=== PATIENT | female | born 1940 | race Caucasian/White ===

== ENCOUNTER → 2016-11-03 12:36 | Outpatient (CLI) | payer MEDICARE, OTHER ==
[2015-01-16 01:20] VITALS: BMI 24.4
[~2016-11-03 12:36] MED LIST: ASCORBIC ACID500 MG PO; BAYER CHEWABLE81 MG PO; BISOPROLOL-HCT1 EAC1 PO; CALCIUM 600+D T1 TA1 PO; CATAPRES0.1 MG PO; CO Q-10200 MG PO; FAMOTIDINE10 MG PO; LISINOPRIL10 MG PO; MICRO-K10 MEQ PO; MULTIPLE VITAMI1 TA1 PO; SYNTHROID100 MCG PO; ZOCOR20 MG PO
== END | disposition home or self-care (01) ==
LOC: D.MAMMO 12:36
DX: Z12.31 Encounter for screening mammogram for malignant neoplasm of breast (principal)

== ENCOUNTER → 2017-03-15 13:20 | Outpatient (CLI) | payer MEDICARE, OTHER ==
[2015-01-16 01:20] VITALS: BMI 24.4
== END | disposition home or self-care (01) ==
LOC: D.US 13:20
DX: I65.23 Occlusion and stenosis of bilateral carotid arteries (principal)

== ENCOUNTER → 2017-05-03 17:18 | Emergency (ER) | payer MEDICARE, OTHER ==
[2015-01-16 01:20] VITALS: BMI 24.4
[~2017-05-03 17:18] MED LIST changes: +BIOTIN5 MG PO; +CETIRIZINE HCL5 MG PO; +LASIX20 MG PO; +NORVASC5 MG PO; +POTASSIUM CHLO10 ME1 PO; +PROBIOTIC1 EAC1 PO; +VITAMIN B-121000 MCG PO; +VITAMIN B650 MG PO; +VITAMIN D31000 UNI2 PO
[2017-05-03 18:40] LABS: BASOPHILS 0.3 % (0-2); EOSINOPHILS 1.8 % (0-7); HEMATOCRIT 39.8 % (36.0-48.0); HEMOGLOBIN 13.4 g/dL (12-16); IMMATURE GRANULOCYTES 0.3 % (0-5); LYMPHOCYTES 16.3 % (15-50); MCH 30.9 pg (26.0-34.0); MCHC 33.7 g/dL (31.0-37.0); MCV 91.7 fL (80.0-100.0); MEAN PLATELET VOLUME 9.6 fL (7.4-10.4); MONOCYTES 7.1 % (2-11); NEUTROPHILS 74.2 % (40-80); PLATELET COUNT 221 10x3/uL (130-400); RBC 4.34 10x6/uL (4.00-5.40); RDW 12.6 % (11.5-14.5); WBC 11.6 10x3/uL (4.8-10.8)
[2017-05-03 18:50] LABS: ALBUMIN 3.8 g/dL (3.4-5.0); ANION GAP 14.4 mmol/L (8-16); BILIRUBIN - TOTAL 0.7 mg/dL (0.2-1.3); CALCIUM 9.9 mg/dL (8.5-10.1); CREATININE - SERUM 1.1 mg/dL (0.6-1.3); POTASSIUM - SERUM 3.4 mmol/L (3.5-5.1); PROTEIN - SERUM 7.9 g/dL (6.4-8.2)
[2017-05-03 19:33] LABS: PRO BNP 332 pg/mL (0-125)
[2017-05-03 19:33] LABS: APPEARANCE CLEAR (CLEAR); BILIRUBIN NEGATIVE (NEGATIVE); COLOR DK YELLOW (YELLOW); GLUCOSE NEGATIVE (NEGATIVE); KETONE NEGATIVE (NEGATIVE); NITRITE NEGATIVE (NEGATIVE); PROTEIN NEGATIVE (NEGATIVE); UROBILINOGEN NORMAL (NORMAL)
[2017-05-03 19:34] LABS: BACTERIA FEW /hpf (NONE SEEN); EPITHELIAL CELLS 0-5 /hpf (0-5); RED CELLS - URINE 0-5 /hpf (0-5); WHITE CELLS - URINE 0-5 /hpf (0-5)
[2017-05-03 19:36] LABS: CALCIUM OXALATE CRYSTALS RARE /hpf (NONE SEEN)
[2017-05-03 19:45] LABS: TROPONIN-I < 0.017 ng/mL (0.000-0.060)
== END ==
LOC: D.ER 17:18
PROVIDERS: Family Medicine
DX: K81.0 Acute cholecystitis (principal)

== ENCOUNTER 2017-07-06 06:30 | Day surgery (SDC) | payer MEDICARE, OTHER ==
[2017-07-05 12:28] LABS: CALC OSMOLALITY 278 mosm/kg (275-300); CALCIUM 9.1 mg/dL (8.5-10.1); CARBON DIOXIDE 29.7 mmol/L (21.0-32.0); CHLORIDE - SERUM 102 mmol/L (98-107); CREATININE - SERUM 0.7 mg/dL (0.6-1.3); GLUCOSE 93 mg/dL (74-106); SODIUM 141 mmol/L (136-145); UREA NITROGEN 8 mg/dL (7-18); eGFR NON AFRICAN AMERICAN 87 mL/min (90-120)
[2017-07-05 12:39] LABS: HEMATOCRIT 38.7 % (36.0-48.0); HEMOGLOBIN 12.9 g/dL (12-16); MCH 30.1 pg (26.0-34.0); MCHC 33.3 g/dL (31.0-37.0); MCV 90.2 fL (80.0-100.0); MEAN PLATELET VOLUME 9.9 fL (7.4-10.4); RBC 4.29 10x6/uL (4.00-5.40); RDW 13.4 % (11.5-14.5); WBC 7.9 10x3/uL (4.8-10.8)
[~2017-07-06] VITALS: Ht 162.6 cm; Wt 59.4 kg
--- NOTE | ~2017-07-06 | OP ---
PATIENT NAME: GREY ZURITA MEDICAL RECORD: [id number] :44 LOCATION:D.[facility] ADMISSION DATE: SURGEON: KELBY DUARTE MD DATE OF OPERATION: 07/06/2017 PREOPERATIVE DIAGNOSIS: Symptomatic gallstones. POSTOPERATIVE DIAGNOSES: Symptomatic gallstones with hepatomegaly. PROCEDURE: 1. Laparoscopic cholecystectomy. 2. Intraoperative cholangiography without immediate surgeon interpretation. 3. An 18-gauge core needle liver biopsies. SURGEON: Kelby Duarte MD. PCI SECURITY CONSULTANT: None. BLOOD LOSS: Minimal. ANESTHESIA: General. COMPLICATIONS: None. The risks, possible complications, and alternatives to the procedure were explained to the patient. She elected to proceed. OPERATIVE COURSE: The patient was conveyed to the operating room electively on 07/06/2017. General anesthesia was induced by the anesthesia staff. The abdomen was sterilely prepped and draped. A small skin reyna was accomplished in the left upper quadrant. A Veress needle was inserted through the skin reyna into the peritoneal cavity. CO2 insufflation was begun. Once a sufficient pneumoperitoneum had been achieved, a 5-mm trocar was inserted through an incision in the right upper quadrant. Under direct internal vision utilizing a television camera, a 12-mm trocar was inserted through an incision at the umbilicus. Two more trocars were inserted. A 5-mm trocar was inserted in the epigastrium. Another 5-mm trocar was inserted far laterally in the right upper quadrant. During insertion of the Veress needle and all trocars, there appeared to have been no injury to the bowels, any intraperitoneal or retroperitoneal structures. The indication for the liver biopsy was hepatomegaly. Under laparoscopic guidance, I percutaneously accessed the right upper quadrant utilizing an 18-gauge core needle liver biopsy device. Cores were obtained over the convexity of the liver. The biopsy sites were made hemostatic with electrocautery. I then advanced the cholangiogram trocar. I punctured the fundus of the gallbladder. I aspirated bile. I then injected dye. Static fluoroscopic images were obtained. These cholangiographic images are sent to the radiologist for interpretation. I withdrew the cholangiogram trocar. The gallbladder was grasped and retracted cephalad. The infundibulum was grasped and retracted laterally. Critical view of the triangle of Calot was visualized. Blunt dissection was begun on the triangle of Calot. One cystic artery and one cystic duct were identified. These were clipped multiply and divided between clips. OPERATIVE REPORT [id number] GREY ZURITA The gallbladder was then excised from its bed and the liver. It was placed within an Endobag retrieval device and was withdrawn through the umbilical fascia defect. The 12-mm trocars were placed and the abdomen reinsufflated. I irrigated and aspirated in the right upper quadrant. There was no bleeding even at low pressure of 8. The Nick-Jose suture closure device and 0 Vicryl sutures were used to close the umbilical fascia. All the trocars were removed and the abdomen desufflated. The incision at the umbilicus was closed with interrupted 4-0 Vicryl Rapide sutures. The other skin incisions were closed with interrupted intracuticular 3-0 Vicryls. Benzoin and Steri-Strips were applied. The patient was then extubated and conveyed to post-anesthesia care unit where she was in stable condition. TRANSINT:[id number] Voice Confirmation ID: [id number] DOCUMENT ID: [id number] KELBY DUARTE MD at 1227 CC: MATTHEW BRIDGES and CALLI NEGRO MD [id number] DICTATION DATE: 07/06/17 1048 AUTO ADJUDICATION SPECIALIST: 07/06/17 1412 [facility] 07/06/[address] [address]
[2017-07-06 07:16] VITALS: BP 118/62; Ht 162.6 cm; Wt 59.4 kg
== END 2017-07-06 14:20 | disposition home or self-care (01) ==
LOC: D.OPS 06:30 → D.PAN 08:45 → D.OPS 08:45 → D.PAN 09:30 → D.OPS 09:30
PROVIDERS: Anesthesiology
DX: K80.10 Calculus of gallbladder with chronic cholecystitis without obstruction (principal); K76.0 Fatty (change of) liver, not elsewhere classified; Z01.812 Encounter for preprocedural laboratory examination

== ENCOUNTER 2018-02-01 08:00 | Outpatient (CLI) | payer MEDICARE, OTHER ==
[2017-07-06 07:16] VITALS: BMI 22.5
== END 2018-02-01 09:00 | disposition home or self-care (01) ==
LOC: D.MAMMO 08:00
DX: Z12.31 Encounter for screening mammogram for malignant neoplasm of breast (principal)

== ENCOUNTER → 2018-07-25 09:28 | Outpatient (CLI) | payer MEDICARE, BC ==
[2017-07-06 07:16] VITALS: BMI 22.5
== END | disposition home or self-care (01) ==
LOC: D.US 09:28
PROVIDERS: ATTEND Internal Medicine Cardiovascular Disease
DX: I36.9 Nonrheumatic tricuspid valve disorder, unspecified (principal); I65.23 Occlusion and stenosis of bilateral carotid arteries

== ENCOUNTER → 2018-09-26 11:21 | Outpatient (CLI) | payer MEDICARE, BC ==
[2017-07-06 07:16] VITALS: BMI 22.5
== END | disposition home or self-care (01) ==
LOC: D.HCCARDIO 11:21
PROVIDERS: ATTEND Internal Medicine Cardiovascular Disease
DX: I34.0 Nonrheumatic mitral (valve) insufficiency (principal)

== ENCOUNTER 2019-02-27 08:00 | Outpatient (CLI) | payer MEDICARE, BC ==
[2017-07-06 07:16] VITALS: BMI 22.5
== END 2019-02-27 23:59 | disposition home or self-care (01) ==
LOC: D.MAMMO 08:00
PROVIDERS: ATTEND Family Medicine
DX: Z12.31 Encounter for screening mammogram for malignant neoplasm of breast (principal)

== ENCOUNTER → 2019-07-24 09:31 | Outpatient (CLI) | payer MEDICARE, BC ==
[2017-07-06 07:16] VITALS: BMI 22.5
== END | disposition home or self-care (01) ==
LOC: D.US 09:30
PROVIDERS: ATTEND Internal Medicine Cardiovascular Disease
DX: I65.23 Occlusion and stenosis of bilateral carotid arteries (principal)

== ENCOUNTER → 2019-11-10 09:39 | Outpatient (CLI) | payer MEDICARE, BC ==
[2017-07-06 07:16] VITALS: BMI 22.5
--- NOTE | ~2019-11-10 | EC ---
PATIENT:GREY ZURITA DATE OF SERVICE: 11/10/19 SEX: F MEDICAL RECORD: [id number] DATE OF : 44 LOCATION:D.[facility] AGE OF PATIENT: 79 ADMISSION DATE: 11/10/19 REFERRING PHYSICIAN: INTERPRETING PHYSICIAN: TERENCE SINGLETARY MD ECHOCARDIOGRAM REPORT ECHO CHARGES 4 ECHO COMPLETE Date: 11/10/19 CLINICAL DIAGNOSIS: CAD/ HX OF MV REPAIRT/MR/TR ECHOCARDIOGRAPHIC MEASUREMENTS (adult normal given) AC root (d.<3.7cm) 4.1 cm LV Septum d (<1.2 cm> 1.6 cm Valve Excursion 1.8 cm LV Septum (systole) 1.7 cm Left Atria (s.<4.0cm> 3.6 cm LVPW d(<1.2cm) 1.5 cm RV (d.<2.3cm) 3.7 cm LVPW (sytole) 1.8 cm LV diastole(<5.6CM) 4.7 cm MV E-F(>70mm/sec) cm LV systole 3.1 cm LVOT Diameter 1.8 cm MV exc.(>10mm) 1.9 cm Est.ejection fraction (50-75%) % DOPPLER: LVIT cm/sec A 86.0 cm/sec E 72.0 cm/sec LA cm/sec RVSP 35 mmHg LVOT 113 cm/sec AOP1/2T m/s Asc. Ao 134 cm/sec RVOT 105 cm/sec RA cm/sec PA 142 cm/sec AV Gradient Peak 7.13 mmHg AV Mean 3.84 mmHg AV Area 2.0 cm MV Gradient Peak 5.48 mmHg MV Mean 1.87 mmHg MV Area cm COMMENTS: Neurodiagnostic Technician: 2 [employer] Director: 2 Dr. Aldridge TAPE# PACS Pericardial Effusion N DATE OF SERVICE: CLINICAL DIAGNOSES: Coronary artery disease; history of mitral valve repair; mitral regurgitation. FINDINGS: Left ventricle - normal left ventricular chamber size and contractile function with ejection fraction 55% to 60%. Left atrial chamber dilatation. Right atrial chamber appears normal. Mild dilatation of the right ventricular chamber with normal function. Aortic valve appears normal. No aortic regurgitation or stenosis. Mitral valve appears normal. Moderate mitral ECHOCARDIOGRAM REPORT [id number] GREY ZURITA regurgitation. Tricuspid valve appears normal. Mild tricuspid regurgitation. Pulmonic valve appears normal. No pulmonic regurgitation. No pericardial effusion visualized. IMPRESSION: 1. Normal left ventricular chamber size and contractile function with ejection fraction 55% to 60%. 2. Moderate mitral regurgitation. TRANSINT:[id number] Voice Confirmation ID: [id number] DOCUMENT ID: [id number] TERENCE SINGLETARY MD CC: [id number] DICTATION DATE: 11/11/19 1150 UNDERLINER: 11/11/19 1257 DEP CLI 11/10/19 [place] [id number] [place] [id number]
== END | disposition home or self-care (01) ==
LOC: D.HCCECHO 09:39
PROVIDERS: ATTEND Internal Medicine Cardiovascular Disease
DX: I25.10 Atherosclerotic heart disease of native coronary artery without angina pectoris (principal)

== ENCOUNTER 2020-04-22 13:00 | Outpatient (CLI) | payer MEDICARE, BC ==
[2017-07-06 07:16] VITALS: BMI 22.5
== END 2020-04-22 23:59 | disposition home or self-care (01) ==
LOC: D.MAMMO 13:00
PROVIDERS: ATTEND Family Medicine
DX: Z12.31 Encounter for screening mammogram for malignant neoplasm of breast (principal)

== ENCOUNTER → 2020-06-24 12:26 | Outpatient (CLI) | payer MEDICARE, BC ==
[2017-07-06 07:16] VITALS: BMI 22.5
== END | disposition home or self-care (01) ==
LOC: D.US 12:26
PROVIDERS: ATTEND Internal Medicine Cardiovascular Disease
DX: I70.8 Atherosclerosis of other arteries (principal)